=== PATIENT | female | born 1985 | race Caucasian/White ===

== ENCOUNTER 2016-08-21 09:23 | Emergency (ER) | payer SELFPAY ==
[~2016-08-21] VITALS: Ht 175.3 cm; Wt 100.0 kg
[2016-08-21 09:25] VITALS: BP 124/69; PULSE 93; RESP 20; TEMP 97.9; O2SAT 99
[2016-08-21] MEDS ORDERED: SODIUM CHLOR 0.9% 1000 ML INJ 1,000 ML IV SCH (09:44)
[2016-08-21] MEDS ORDERED: KETOROLAC TROMETHAMINE 30 MG/ML (IVP) VIAL IVP ONE (09:45)
[2016-08-21] MEDS ORDERED: SODIUM CHLORIDE 0.9% FLUSH 10 ML FLUSH IV FLUSH PRN (09:45)
[2016-08-21] MEDS ORDERED: SODIUM CHLOR 0.9% 1000 ML INJ 1,000 ML IV ONE (09:45)
[2016-08-21] MEDS ORDERED: INSULIN ASPART 1,000 UNITS/10 ML VIAL SQ ONE (09:45)
[2016-08-21] MEDS ORDERED: ONDANSETRON HCL 4 MG/2 ML VIAL IVP ONE (09:45)
--- NOTE | 2016-08-21 09:54 | PD ---
HPI Chief Complaint: GI Complaint Time Seen by Provider: 09:31 Travel History International Travel<30 days: No Contact w/Intl Traveler<30days: No Traveled to known affect area: No History of Present Illness HPI 30 year-old woman, history of type 1 diabetes, presents to the emergency room with nausea vomiting abdominal pain started around midnight last night. She said about 6 episodes of vomiting, initially food like emesis, now yellow liquid , starting last night. She is not prone to similar problems in the past. She has some abdominal discomfort that she localizes towards the mid abdomen and right upper quadrant, but also occasional sharp pains in the lower suprapubic abdomen. No change in her bowel movements. No vaginal discharge. Last initial period was August 03. She did notice a little bit of spotting started yesterday. She denies any urinary symptoms. Blood sugars were running little bit high recently she's been more stressed out, mostly in the high 100s, but sometimes up to the 300s. Review of systems also positive for some cough, and chills. History Past Medical History Narrative Medical Diabetes Tetanus Vaccination: Unknown Influenza Vaccination: No LMP: 08-03-16 : 0 Social History Alcohol Use: Yes (occ) Tobacco Use: Yes Allergies-Medications (Allergen,Severity, Reaction): Coded Allergies: No Known Allergies (Verified , 08/21/16) Reported Meds & Prescriptions Reported Meds & Active Scripts Active Reported Lantus Inj (Insulin Glargine) 1,000 Unit/10 Ml Vial 30 Units SQ HS Humalog Inj (Insulin Human Lispro) 1,000 Unit/10 Ml Vial 2-12 Units SQ ACHS Max dose at bedtime:( )units; sugars < 70,(0)units; sugars 150-199,(2)units; sugars 200-249,(4)units; sugars 250-299,(7)units; sugars 300-349,(10)units; sugars more than 349,(12)units. Review of Systems Except as stated in HPI: all other systems reviewed are Neg Physical Exam Narrative GENERAL: 30 year-old woman, well-appearing, no acute distress. SKIN: Focused skin assessment warm/dry. NECK: Trachea midline. No JVD. CARDIOVASCULAR: Regular rate and rhythm. No murmur appreciated. RESPIRATORY: No accessory muscle use. Clear to auscultation. Breath sounds equal bilaterally. GASTROINTESTINAL: Abdomen is obese, soft, with mild to moderate right upper quadrant tenderness to palpation. Minimal lower abdominal tenderness. No rebound or guarding. No other complaints. MUSCULOSKELETAL: No obvious deformities. No edema. NEUROLOGICAL: Awake and alert. No obvious cranial nerve deficits. Motor grossly within normal limits. Normal speech. PSYCHIATRIC: Appropriate mood and affect; insight and judgment normal. Data Data Last Documented VS Vital Signs Date Time Temp Pulse Resp B/P Pulse Ox O2 Delivery O2 Flow Rate FiO2 08/21/16 11:35 99 Room Air 08/21/16 11:34 84 18 111/53 08/21/16 09:25 97.9 Orders Ed Urine Pregnancytest Poc (08/21/16 09:31) Urinalysis - C+S If Indicated (08/21/16 09:31) Complete Blood Count With Diff (08/21/16 09:44) Comprehensive Metabolic Panel (08/21/16 09:44) Lipase (08/21/16 09:44) Us Abdomen Gallbladder (08/21/16 ) Iv Access Insert/Monitor (08/21/16 09:44) Ecg Monitoring (08/21/16 09:44) Oximetry (08/21/16 09:44) Ondansetron Inj (Zofran Inj) (08/21/16 09:45) Sodium Chlor 0.9% 1000 Ml Inj (Ns 1000 M (08/21/16 09:44) Sodium Chloride 0.9% Flush (Ns Flush) (08/21/16 09:45) Ketorolac Inj (Toradol Inj) (08/21/16 09:45) Sodium Chlor 0.9% 1000 Ml Inj (Ns 1000 M (08/21/16 09:45) Insulin Aspart Inj (Novolog Inj) (08/21/16 09:45) Labs Laboratory Tests Test 08/21/16 08/21/16 09:50 10:00 Urine Color YELLOW Urine Turbidity CLEAR Urine pH 6.0 Urine Specific [place] 1.035 Urine Protein TRACE mg/dL Urine Glucose (UA) 1000 mg/dL Urine Ketones 10 mg/dL Urine Occult Blood NEG Urine Nitrite NEG Urine Bilirubin NEG Urine Urobilinogen LESS THAN 2.0 MG/DL Urine Leukocyte Esterase NEG Urine RBC LESS THAN 1 /hpf Urine WBC 2 /hpf Urine Squamous Epithelial 2 /hpf Cells Urine Mucus FEW /lpf Microscopic Urinalysis Comment CULT NOT INDICATED White Blood Count 11.0 TH/MM3 Red Blood Count 4.62 MIL/MM3 Hemoglobin 14.2 GM/DL Hematocrit 42.5 % Mean Corpuscular Volume 92.1 FL Mean Corpuscular Hemoglobin 30.7 PG Mean Corpuscular Hemoglobin 33.3 % Concent Red Cell Distribution Width 13.0 % Platelet Count 218 TH/MM3 Mean Platelet Volume 11.0 FL Neutrophils (%) (Auto) 88.6 % Lymphocytes (%) (Auto) 7.2 % Monocytes (%) (Auto) 2.5 % Eosinophils (%) (Auto) 1.6 % Basophils (%) (Auto) 0.1 % Neutrophils # (Auto) 9.8 TH/MM3 Lymphocytes # (Auto) 0.8 TH/MM3 Monocytes # (Auto) 0.3 TH/MM3 Eosinophils # (Auto) 0.2 TH/MM3 Basophils # (Auto) 0.0 TH/MM3 CBC Comment DIFF FINAL Differential Comment Sodium Level 133 MEQ/L Potassium Level 4.3 MEQ/L Chloride Level 101 MEQ/L Carbon Dioxide Level 25.6 MEQ/L Anion Gap 6 MEQ/L Blood Urea Nitrogen 11 MG/DL Creatinine 0.62 MG/DL Estimat Glomerular Filtration 115 ML/MIN Rate Random Glucose 283 MG/DL Calcium Level 8.4 MG/DL Total Bilirubin 0.7 MG/DL Aspartate Amino Transf 18 U/L (AST/SGOT) Alanine Aminotransferase 21 U/L (ALT/SGPT) Alkaline Phosphatase 72 U/L Total Protein 7.0 GM/DL Albumin 3.4 GM/DL Lipase 120 U/L [facility] Medical Decision Making Medical Screen Exam Complete: Yes Emergency Medical Condition: Yes Interpretation(s) LABS: CBC unremarkable CMP unremarkable except for glucose of 283 Lipase normal UA negative Differential Diagnosis Gastritis, cholecystitis, hepatobiliary disease, pancreatitis, , UTI, PID, other Narrative Course Medical decision making INITIAL cause a 22-year-old woman presents to the emergency department with a abdominal pain with vomiting. Pain more in the upper abdomen, right upper quadrant, so she was on vomiting. She has a little bit of spotting as well. She was sexually active about a month or so ago. She's not had any vaginal discharge or other abnormal symptoms to suggest that she is Gustavo or PID. We' ll check labs, ultrasound gallbladder, IV fluids, insulin, Zofran, Toradol, and reassess. Likely discharge with supportive treatment. Diagnosis Primary Impression: Nausea & vomiting Additional Impression: Hyperglycemia Additional Instructions: Take Zofran as needed for nausea or vomiting. Return to the emergency department any worsening abdominal pain, high fevers, dehydration, or any other new or worsening symptoms. Med/Other Pt SpecificInfo: Prescription(s) given Scripts Ondansetron Odt (Zofran Odt)4 Mg Tab4 Mg SL Q8HR PRN (Nausea/Vomiting) #15 TAB May substitute non-ODT form. Prov:Krishna Mendenhall MD 08/21/16 Disposition: 01 DISCHARGE HOME Condition: Stable Krishna Mendenhall MD August 21, 2016 09:54
[2016-08-21 10:17] LABS: AUTOMATED NEUTROPHIL # 9.8 TH/MM3 (1.8-7.7); BASOPHIL % 0.1 % (0.0-2.0); EOSINOPHIL # 0.2 TH/MM3 (0-0.4); EOSINOPHIL % 1.6 % (0.0-4.0); HEMATOCRIT 42.5 % (35.0-46.0); HEMO FLAGS DIFF FINAL; LYMPH % 7.2 % (9.0-44.0); LYMPHOCYTE # 0.8 TH/MM3 (1.0-4.8); MEAN CELL VOLUME 92.1 FL (80.0-100.0); MEAN CORPUSCULAR HEMOGLOBIN 30.7 PG (27.0-34.0); MEAN CORPUSCULAR HGB CONC 33.3 % (32.0-36.0); MONO % 2.5 % (0.0-8.0); NEUT % 88.6 % (16.0-70.0); PLATELET COUNT 218 TH/MM3 (150-450); RED BLOOD COUNT 4.62 MIL/MM3 (4.00-5.30)
[2016-08-21 10:28] LABS: BLOOD, URINE NEG (NEG); COMMENT (UR) CULT NOT INDICATED; CULTURE IF INDICATED CULT NOT INDICATED; GLUCOSE,URINE 1000 mg/dL (NEG); KETONE, URINE 10 mg/dL (NEG); MUCUS URINE FEW /lpf (OCC); NITRITE,URINE NEG (NEG); SQUAMOUS EPITHELIAL CELL URINE 2 /hpf (0-5); URINE COLOR YELLOW (YELLW/STRAW)
--- NOTE | 2016-08-21 10:31 | RADRPT ---
EXAM DATE/TIME: 08/21/2016 09:52 [place] COMPARISON: No previous studies available for comparison. INDICATIONS : Right upper quadrant pain. MEDICAL HISTORY : Diabetes. Nausea. Vomiting. SURGICAL HISTORY : LEEP procedure. Finger surgery. ENCOUNTER: Initial ACUITY: 1 day PAIN SCORE: 5/10 LOCATION: Right upper quadrant MEASUREMENTS: LIVER: 13.3 cm length COMMON DUCT: 2 mm RIGHT KIDNEY: 10.2 x 5.6 x 5.9 cm FINDINGS: LIVER: Normal echotexture without focal lesion or ductal dilatation. COMMON DUCT: No intraluminal mass or stone visualized. GALLBLADDER: Contains no stones, demonstrates no wall thickening or pericholecystic fluid. PANCREAS: The visualized portions are within normal limits. RIGHT KIDNEY: The right inferior renal pole is obscured by overlying bowel gas. Otherwise, No evidence of hydroneph rosis, stone, or mass. CONCLUSION: 1. No sonographic evidence for cholelithiasis or acute cholecystitis, as questioned. 2. Limited evaluation of the right inferior renal pole. Jermaine Ibanez MD on August 21, 2016 at 10:26 Board Certified Radiologist. This report was verified electronically.
[2016-08-21] MEDS ORDERED: HUMALOG SQ (10:44)
[2016-08-21] MEDS ORDERED: LANTUS2P SQ (10:44)
[2016-08-21 10:53] LABS: ANION GAP 6 MEQ/L (5-15); BICARBONATE 25.6 MEQ/L (21.0-32.0); BLOOD UREA NITROGEN 11 MG/DL (7-18); CHLORIDE 101 MEQ/L (98-107); POTASSIUM 4.3 MEQ/L (3.5-5.1); SODIUM (NA) 133 MEQ/L (136-145)
[2016-08-21 11:21] LABS: ALT (GPT) 21 U/L (10-53)
[2016-08-21 11:32] LABS: ALKALINE PHOSPHATASE 72 U/L (45-117); TOTAL BILIRUBIN ADULT 0.7 MG/DL (0.2-1.0)
[2016-08-21 11:33] LABS: AST (GOT) 18 U/L (15-37); GLOMERULAR FILTRATION RATE 115 ML/MIN (>89)
[2016-08-21 11:34] VITALS: BP 111/53; PULSE 84; RESP 18; O2SAT 99
[2016-08-21 11:35] VITALS: O2SAT 99
[2016-08-21] MEDS ORDERED: ZOFR4TAB3 SL (11:58)
== END 2016-08-21 12:16 | disposition home or self-care (01) ==
LOC: NEPD 09:23
DX: R11.2 Nausea with vomiting, unspecified (principal); E10.65 Type 1 diabetes mellitus with hyperglycemia; Z79.4 Long term (current) use of insulin; Z72.0 Tobacco use
CPT/HCPCS: 76705; 80053; 81001; 83690; 84703; 85025; 96361; 96372; 96374; 96375; 99285; J1815; J1885; J2405; J7030

== ENCOUNTER 2016-09-07 12:08 | Emergency (ER) | payer SELFPAY ==
[~2016-09-07] VITALS: Ht 175.3 cm; Wt 95.0 kg
[~2016-09-07 12:08] MED LIST: HUMALOG SQ; LANTUS2P SQ; ZOFR4TAB3 SL
[2016-09-07 12:10] VITALS: BP 133/77; PULSE 95; RESP 20; TEMP 97.4; O2SAT 100
[2016-09-07 12:27] VITALS: BP 142/70; PULSE 86; RESP 17; O2SAT 100
[2016-09-07 12:40] VITALS: BP 142/70; PULSE 88; RESP 18; O2SAT 99
--- NOTE | 2016-09-07 12:40 | PD ---
HPI Chief Complaint: Abnormal Results Time Seen by Provider: 12:33 Travel History International Travel<30 days: No Contact w/Intl Traveler<30days: No Traveled to known affect area: No History of Present Illness HPI 30-year-old female with a history of type 1 diabetes presents to the emergency department for evaluation of low blood sugar and left ear pain. Patient states that for the last week she's noticed her blood sugar has been in the low 50s when she wakes up in the morning. She admits that she has taken a second job and has not been eating as much or as frequently as previously. States that this morning when she woke up she had a throbbing pain in her left ear and also a slight headache. States that she also felt a little shaky and noticed that her blood sugar was 52. States that she ate breakfast and she is feeling a little better however her ears still causing her pain. She took an ibuprofen with minimal improvement of symptoms. She states she has had a slight dry cough and some mild nasal congestion over the past 2 days. She states that she uses a Humalog sliding scale 2-3 times throughout the day and takes Lantus 30 units every night. Denies any fever, chills, nausea, vomiting, diarrhea, abdominal pain, dysuria, chest pain, shortness of breath. Denies , she is currently on her menstrual cycle. No other complaints. PFSH Past Medical History Diabetes: Yes (TYPE I) Patient Takes Glucophage: No Diminished Hearing: No Medical other: Yes (dm) Tetanus Vaccination: > 5 Years Influenza Vaccination: No ?: Not LMP: 09/07/16 : 0 Past Surgical History Other Surgery: Yes (LEEP PROCEDURE) Family History Family Hypercholesterolemia: No Social History Alcohol Use: Yes (occ) Tobacco Use: Yes (1/2 pack per day) Substance Use: Yes (occ marijuana) Allergies-Medications (Allergen,Severity, Reaction): Coded Allergies: No Known Allergies (Verified , 09/07/16) Reported Meds & Prescriptions Reported Meds & Active Scripts Active Reported Lantus Inj (Insulin Glargine) 1,000 Unit/10 Ml Vial 30 Units SQ HS Humalog Inj (Insulin Human Lispro) 1,000 Unit/10 Ml Vial 2-12 Units SQ ACHS Max dose at bedtime:( )units; sugars < 70,(0)units; sugars 150-199,(2)units; sugars 200-249,(4)units; sugars 250-299,(7)units; sugars 300-349,(10)units; sugars more than 349,(12)units. Review of Systems Except as stated in HPI: all other systems reviewed are Neg Physical Exam Narrative GENERAL: Well-nourished and well-developed pleasant female patient in no acute distress who is nontoxic appearing. SKIN: Warm and dry. HEAD: Normocephalic and atraumatic. EYES: No injection, drainage, or hyphema noted. PERRLA. EOMI. ENT: No nasal drainage noted. Oropharynx is clear and the TMs are normal with good landmarks. NECK: Supple and the trachea is midline. No lymphadenopathy is noted throughout the cervical chains. CARDIOVASCULAR: Regular rate and rhythm. RESPIRATORY: Breath sounds are equal bilaterally with no accessory muscle use, wheezing, rhonchi, or crackles. GASTROINTESTINAL: Abdomen is soft, non-tender, and nondistended. MUSCULOSKELETAL: No obvious deformities, swelling, cyanosis, or ecchymosis is present throughout the upper and lower extremities. Patient has full range of motion without any signs of neurovascular compromise. NEUROLOGICAL: Awake, alert, and oriented. Normal speech and gait. Cranial nerves are grossly intact. Data Data Last Documented VS Vital Signs Date Time Temp Pulse Resp B/P Pulse Ox O2 Delivery O2 Flow Rate FiO2 09/07/16 12:40 88 18 142/70 99 Room Air 09/07/16 12:10 97.4 Orders Basic Metabolic Panel (Bmp) (09/07/16 12:32) Complete Blood Count With Diff (09/07/16 12:32) Urinalysis - C+S If Indicated (09/07/16 12:32) Iv Access Insert/Monitor (09/07/16 12:32) Ecg Monitoring (09/07/16 12:32) Oximetry (09/07/16 12:32) Sodium Chloride 0.9% Flush (Ns Flush) (09/07/16 12:45) Ed Urine Pregnancytest Poc (09/07/16 12:32) Acetaminophen (Tylenol) (09/07/16 12:45) Labs Laboratory Tests Test 09/07/16 12:30 White Blood Count 9.3 TH/MM3 Red Blood Count 4.39 MIL/MM3 Hemoglobin 13.2 GM/DL Hematocrit 41.0 % Mean Corpuscular Volume 93.4 FL Mean Corpuscular Hemoglobin 30.2 PG Mean Corpuscular Hemoglobin 32.3 % Concent Red Cell Distribution Width 13.3 % Platelet Count 233 TH/MM3 Mean Platelet Volume 10.5 FL Neutrophils (%) (Auto) 68.6 % Lymphocytes (%) (Auto) 21.2 % Monocytes (%) (Auto) 6.8 % Eosinophils (%) (Auto) 2.6 % Basophils (%) (Auto) 0.8 % Neutrophils # (Auto) 6.4 TH/MM3 Lymphocytes # (Auto) 2.0 TH/MM3 Monocytes # (Auto) 0.6 TH/MM3 Eosinophils # (Auto) 0.2 TH/MM3 Basophils # (Auto) 0.1 TH/MM3 CBC Comment DIFF FINAL Differential Comment Urine Color YELLOW Urine Turbidity CLEAR Urine pH 8.5 Urine Specific [place] 1.029 Urine Protein 300 mg/dL Urine Glucose (UA) NEG mg/dL Urine Ketones NEG mg/dL Urine Occult Blood NEG Urine Nitrite NEG Urine Bilirubin NEG Urine Urobilinogen 2.0 MG/DL Urine Leukocyte Esterase NEG Urine RBC LESS THAN 1 /hpf Urine WBC LESS THAN 1 /hpf Urine Squamous Epithelial 2 /hpf Cells Urine Mucus FEW /lpf Microscopic Urinalysis Comment CULT NOT INDICATED Sodium Level 140 MEQ/L Potassium Level 4.4 MEQ/L Chloride Level 104 MEQ/L Carbon Dioxide Level 30.9 MEQ/L Anion Gap 5 MEQ/L Blood Urea Nitrogen 11 MG/DL Creatinine 0.75 MG/DL Estimat Glomerular Filtration 92 ML/MIN Rate Random Glucose 133 MG/DL Calcium Level 8.8 MG/DL [facility] Medical Decision Making Medical Screen Exam Complete: Yes Emergency Medical Condition: Yes Differential Diagnosis Hypoglycemia versus URI versus decreased oral intake versus electrolyte abnormality Narrative Course 30-year-old female with a history of type 1 diabetes presents to the emergency department for evaluation of low blood sugar and left ear pain with headache. Patient is afebrile, vital signs are stable. Physical examination is essentially unremarkable. The patient has been working more and eating less frequently is likely the cause of her lower blood sugars. I discussed eating more frequent small meals throughout the day and monitoring her blood sugar appropriately. Her symptoms are consistent with maybe the beginning of a viral upper respiratory infection or seasonal allergies. We'll check basic blood work. This is unremarkable the patient will be discharged to home with supportive care. CBC is unremarkable. BMP is unremarkable, shows glucose is 133. Urinalysis shows 300 protein and few mucus. Otherwise unremarkable. Patient has remained stable without complaint while here in the emergency department. She is advised follow-up as an outpatient with her PCP. Discussed supportive care and when to return to the emergency department. Patient verbalizes understanding and agreement with treatment plan. I discussed the case with my attending physician Dr. Dejesus who is aware of the patients history, physical examination findings, and treatment plan. Diagnosis Primary Impression: Hypoglycemia due to type 1 diabetes mellitus Additional Impression: Left ear pain Referrals: Primary Care Physician Patient Instructions: General Instructions, Type 1 Diabetes in Adults (ED) Departure Forms: Tests/Procedures, Work Release Enter return to work date: Sep 08, 2016 Additional Instructions: Make sure to eat multiple small meals and snacks throughout the day. Monitor your blood glucose accordingly. Follow-up with your Primary Care Physician. Return to the ED for any acute worsening of symptoms. Med/Other Pt SpecificInfo: No Change to Meds Disposition: 01 DISCHARGE HOME Condition: Stable Jo Ann Marley Sep 07, 2016 12:40
[2016-09-07] MEDS ORDERED: SODIUM CHLORIDE 0.9% FLUSH 10 ML FLUSH IV FLUSH PRN (12:45)
[2016-09-07] MEDS ORDERED: ACETAMINOPHEN 500 MG CPLT PO ONE (12:45)
[2016-09-07 12:59] LABS: AUTOMATED NEUTROPHIL # 6.4 TH/MM3 (1.8-7.7); BASOPHIL # 0.1 TH/MM3 (0-0.2); BASOPHIL % 0.8 % (0.0-2.0); EOSINOPHIL # 0.2 TH/MM3 (0-0.4); EOSINOPHIL % 2.6 % (0.0-4.0); HEMO FLAGS DIFF FINAL; LYMPH % 21.2 % (9.0-44.0); MEAN CELL VOLUME 93.4 FL (80.0-100.0); MEAN CORPUSCULAR HEMOGLOBIN 30.2 PG (27.0-34.0); MEAN CORPUSCULAR HGB CONC 32.3 % (32.0-36.0); MONO % 6.8 % (0.0-8.0); NEUT % 68.6 % (16.0-70.0); PLATELET COUNT 233 TH/MM3 (150-450); RED BLOOD COUNT 4.39 MIL/MM3 (4.00-5.30); RED CELL DISTRIBUTION WIDTH 13.3 % (11.6-17.2); WHITE BLOOD COUNT 9.3 TH/MM3 (4.0-11.0)
[2016-09-07 13:01] LABS: BLOOD, URINE NEG (NEG); COMMENT (UR) CULT NOT INDICATED; CULTURE IF INDICATED CULT NOT INDICATED; GLUCOSE,URINE NEG (NEG); KETONE, URINE NEG (NEG); MUCUS URINE FEW /lpf (OCC); NITRITE,URINE NEG (NEG); PH, URINE 8.5 (5.0-8.5); SQUAMOUS EPITHELIAL CELL URINE 2 /hpf (0-5); URINE COLOR YELLOW (YELLW/STRAW)
[2016-09-07 13:14] LABS: BICARBONATE 30.9 MEQ/L (21.0-32.0); POTASSIUM 4.4 MEQ/L (3.5-5.1)
[2016-09-07 14:00] VITALS: RESP 17
== END 2016-09-07 14:06 | disposition home or self-care (01) ==
LOC: NEPE 12:08
DX: E11.649 Type 2 diabetes mellitus with hypoglycemia without coma (principal); H92.02 Otalgia, left ear; Z79.4 Long term (current) use of insulin; F17.210 Nicotine dependence, cigarettes, uncomplicated
CPT/HCPCS: 80048; 81001; 84703; 85025; 99284

== ENCOUNTER 2016-09-12 11:35 | Emergency (ER) | payer SELFPAY ==
[~2016-09-12] VITALS: Ht 175.3 cm; Wt 95.4 kg
[~2016-09-12 11:35] MED LIST changes: -ZOFR4TAB3 SL
[2016-09-12 11:38] VITALS: BP 131/71; PULSE 93; RESP 18; TEMP 98.6; O2SAT 99
--- NOTE | 2016-09-12 12:44 | PD ---
HPI Chief Complaint: ENT Complaint Time Seen by Provider: 12:37 Travel History International Travel<30 days: No Contact w/Intl Traveler<30days: No Traveled to known affect area: No History of Present Illness HPI 30-year-old Afro[place] female presents the emergency department with upper respiratory symptoms for the past week. Patient states worsening left ear pain and drainage from both eyes this morning. She has a sinus headache and postnasal drip noted for the past several days. Patient is have productive cough secondary to postnasal drip. She denies significant sore throat or chest pain or congestion. She has no nausea or vomiting. Pain is a 7 out of 10 in the left ear. She has no other significant symptoms. No known drug allergies. PFSH Past Medical History Diabetes: Yes (TYPE 1) Diminished Hearing: No : 0 Past Surgical History Other Surgery: Yes (LEEP PROCEDURE) Family History Family Hypercholesterolemia: No Social History Alcohol Use: Yes (occ) Tobacco Use: Yes (1/2 pack per day) Substance Use: Yes (occ marijuana) Allergies-Medications (Allergen,Severity, Reaction): Coded Allergies: No Known Allergies (Verified , 09/07/16) Reported Meds & Prescriptions Reported Meds & Active Scripts Active Reported Lantus Inj (Insulin Glargine) 1,000 Unit/10 Ml Vial 30 Units SQ HS Humalog Inj (Insulin Human Lispro) 1,000 Unit/10 Ml Vial 2-12 Units SQ ACHS Max dose at bedtime:( )units; sugars < 70,(0)units; sugars 150-199,(2)units; sugars 200-249,(4)units; sugars 250-299,(7)units; sugars 300-349,(10)units; sugars more than 349,(12)units. Review of Systems General / Constitutional: No: Fever Eyes: Positive: Drainage, No: Visual changes HENT: Positive: Headaches, Rhinitis, Rhinorrhea, Congestion, Earache, No: Vertigo, Lightheadedness, Sore Throat, Nosebleed, Gingival Bleeding, Dental Difficulties, Ear Discharge Cardiovascular: No: Chest Pain or Discomfort Respiratory: Positive: Cough, No: Shortness of Breath, Wheezing Gastrointestinal: No: Nausea, Vomiting, Diarrhea, Abdominal Pain Genitourinary: No: Dysuria Musculoskeletal: No: Pain Skin: No Rash Neurologic: No: Weakness Psychiatric: No: Depression Endocrine: No: Polydipsia Hematologic/Lymphatic: No: Easy Bruising Physical Exam Narrative GENERAL: Patient appears in no acute distress. SKIN: Warm and dry. Normal color. Normal turgor. HEAD: Atraumatic. Normocephalic. Patient has moderate frontal and sinus tenderness with percussion and palpation. EYES: Pupils equal and round. No scleral icterus. No injection or drainage. ENT: No nasal bleeding or discharge. Mucous membranes pink and moist. TMs are currently clear bilaterally. Posterior pharynx is injected and swollen with postnasal drip noted. No significant lymphadenopathy. NECK: Trachea midline. Supple and nontender without significant lymphadenopathy. CARDIOVASCULAR: Regular rate and rhythm. RESPIRATORY: No accessory muscle use. Clear to auscultation. Breath sounds equal bilaterally. MUSCULOSKELETAL: Extremities without clubbing, cyanosis, or edema. No obvious deformities. NEUROLOGICAL: Awake and alert. No obvious cranial nerve deficits. Motor grossly within normal limits. Five out of 5 muscle strength in the arms and legs. Normal speech. PSYCHIATRIC: Appropriate mood and affect; insight and judgment normal. Data Data Last Documented VS Vital Signs Date Time Temp Pulse Resp B/P Pulse Ox O2 Delivery O2 Flow Rate FiO2 09/12/16 11:38 98.6 93 18 131/71 99 Room Air MDM Medical Decision Making Medical Screen Exam Complete: Yes Emergency Medical Condition: Yes Medical Record Reviewed: Yes Differential Diagnosis Upper strength infection. Otitis media. Otitis externa. Sinusitis. Narrative Course Patient was treated for sinusitis with amoxicillin 875 twice a day 10 days. Patient is also given Flonase nasal spray 2 sprays each nostril daily. Patient take [id number] ibuprofen and cold medicine as needed. Work note is given. Follow-up as symptoms do not improve or worsen as discussed. Diagnosis Primary Impression: Sinusitis, acute Qualified Code: J01.40 - Acute pansinusitis, recurrence not specified Referrals: Primary Care Physician Patient Instructions: General Instructions, Sinusitis (ED) Departure Forms: Work Release Enter return to work date: Sep 13, 2016 Additional Instructions: Patient was treated for sinusitis with amoxicillin 875 twice a day 10 days. Patient is also given Flonase nasal spray 2 sprays each nostril daily. Patient take [id number] ibuprofen and cold medicine as needed. Work note is given. Follow-up as symptoms do not improve or worsen as discussed. Med/Other Pt SpecificInfo: Prescription(s) given Disposition: 01 DISCHARGE HOME Condition: Stable Teddy Contreras Sep 12, 2016 12:44
[2016-09-12] MEDS ORDERED: AMOX875T PO (12:45)
[2016-09-12] MEDS ORDERED: FLUT1SPR5 EACH NARE (12:45)
== END 2016-09-12 13:12 | disposition home or self-care (01) ==
LOC: NEPK 11:35
DX: J01.90 Acute sinusitis, unspecified (principal); E10.9 Type 1 diabetes mellitus without complications; F17.210 Nicotine dependence, cigarettes, uncomplicated
CPT/HCPCS: 99284

== ENCOUNTER 2016-10-22 12:01 | Emergency (ER) | payer SELFPAY ==
[~2016-10-22] VITALS: Ht 175.3 cm; Wt 100.0 kg
[~2016-10-22 12:01] MED LIST changes: +AMOX875T PO; +FLUT1SPR5 EACH NARE
[2016-10-22 12:02] VITALS: BP 125/67; PULSE 103; RESP 20; TEMP 97.8; O2SAT 99
--- NOTE | 2016-10-22 12:21 | PD ---
HPI Chief Complaint: Injury Time Seen by Provider: 12:21 Travel History International Travel<30 days: No Contact w/Intl Traveler<30days: No Traveled to known affect area: No History of Present Illness HPI 30-year-old Afro-[place] female with history of diabetes treated with insulin, presents the emergency department with reports of numbness to the left toes and distal foot. Patient states she did injure her foot by stubbing her left great toe a couple of months ago. She was concerned that she might have some type of infection. However the patient does not have pain, erythema, swelling, or fever. Her blood sugars running between 120 and 150. She is currently being seen through [facility] for her diabetes. Patient states the numbness seems to be worse in the evenings. She denies any pain of any kind. She has no known drug allergies PFS Past Medical History Diabetes: Yes (TYPE 1) Diminished Hearing: No ?: Not : 0 Past Surgical History Other Surgery: Yes (LEEP PROCEDURE) Family History Family Hypercholesterolemia: No Social History Alcohol Use: Yes (occ) Tobacco Use: Yes (1/2 pack per day) Substance Use: Yes (occ marijuana) Allergies-Medications (Allergen,Severity, Reaction): Coded Allergies: No Known Allergies (Verified , 09/12/16) Reported Meds & Prescriptions Reported Meds & Active Scripts Active Flonase Nasal [place] (Fluticasone Nasal [place]) 50 Mcg/Act [place] 100 Mcg EACH NARE DAILY Amoxicillin 875 Mg Tab 875 Mg PO BID Reported Lantus Inj (Insulin Glargine) 1,000 Unit/10 Ml Vial 30 Units SQ HS Humalog Inj (Insulin Human Lispro) 1,000 Unit/10 Ml Vial 2-12 Units SQ ACHS Max dose at bedtime:( )units; sugars < 70,(0)units; sugars 150-199,(2)units; sugars 200-249,(4)units; sugars 250-299,(7)units; sugars 300-349,(10)units; sugars more than 349,(12)units. Review of Systems Except as stated in HPI: all other systems reviewed are Neg General / Constitutional: No: Fever Eyes: No: Visual changes HENT: No: Headaches Cardiovascular: No: Chest Pain or Discomfort Respiratory: No: Shortness of Breath Gastrointestinal: No: Abdominal Pain Genitourinary: No: Dysuria Musculoskeletal: No: Pain Skin: No Rash Neurologic: No: Weakness Psychiatric: No: Depression Endocrine: No: Polydipsia Hematologic/Lymphatic: No: Easy Bruising Physical Exam Narrative GENERAL: Patient is in no acute distress. SKIN: Warm and dry. Normal color. Normal turgor. Brisk capillary refill and both lower extremities. There is no sign of open wound, cellulitis, or other findings on the feet. HEAD: Atraumatic. Normocephalic. EYES: Pupils equal and round. No scleral icterus. No injection or drainage. ENT: No nasal bleeding or discharge. Mucous membranes pink and moist. NECK: Trachea midline. No JVD. CARDIOVASCULAR: Regular rate and rhythm. RESPIRATORY: No accessory muscle use. Clear to auscultation. Breath sounds equal bilaterally. GASTROINTESTINAL: Abdomen soft, non-tender, nondistended. Hepatic and splenic margins not palpable. MUSCULOSKELETAL: Extremities without clubbing, cyanosis, or edema. No obvious deformities. NEUROLOGICAL: Awake and alert. No obvious cranial nerve deficits. Patient states a feeling of pins and needles to the distal left foot and toes. Motor grossly within normal limits. Five out of 5 muscle strength in the arms and legs. Normal speech. PSYCHIATRIC: Appropriate mood and affect; insight and judgment normal. Data Data Last Documented VS Vital Signs Date Time Temp Pulse Resp B/P Pulse Ox O2 Delivery O2 Flow Rate FiO2 10/22/16 12:02 97.8 103 20 125/67 99 MDM Medical Decision Making Medical Screen Exam Complete: Yes Emergency Medical Condition: No Differential Diagnosis Neuritis. Diabetic neuropathy. Left foot contusion. Narrative Course A medical screening exam was performed: At the time of evaluation the presenting medical condition was determined not to be of an emergent nature. The patient was given the option of receiving additional care, but declined. Patient was given options for additional community resources from which to obtain care. The Patient Has Been advised to seek medical attention for their presenting complaint. The patient has been advised to return to the ER at any time if an emergent condition develops. Condition: Stable Teddy Contreras Oct 22, 2016 12:21
== END 2016-10-22 12:30 | disposition left against medical advice (07) ==
LOC: NEPK 12:01
DX: R20.0 Anesthesia of skin (principal)
CPT/HCPCS: 99281

== ENCOUNTER 2017-06-30 11:17 | Emergency (ER) | payer SELFPAY ==
[~2017-06-30] VITALS: Ht 177.8 cm; Wt 100.0 kg
[2017-06-30 11:56] VITALS: BP 148/83; PULSE 101; RESP 16; TEMP 98.5; O2SAT 100
[2017-06-30 15:03] LABS: AUTOMATED NEUTROPHIL # 6.7 TH/MM3 (1.8-7.7); BASOPHIL # 0.1 TH/MM3 (0-0.2); BASOPHIL % 0.7 % (0.0-2.0); EOSINOPHIL # 0.2 TH/MM3 (0-0.4); EOSINOPHIL % 2.1 % (0.0-4.0); HEMATOCRIT 42.3 % (35.0-46.0); HEMOGLOBIN 14.2 GM/DL (11.6-15.3); LYMPH % 22.6 % (9.0-44.0); LYMPHOCYTE # 2.2 TH/MM3 (1.0-4.8); MEAN CELL VOLUME 92.6 FL (80.0-100.0); MEAN CORPUSCULAR HEMOGLOBIN 31.2 PG (27.0-34.0); MEAN CORPUSCULAR HGB CONC 33.7 % (32.0-36.0); MEAN PLATELET VOLUME 10.7 FL (7.0-11.0); MONO % 5.8 % (0.0-8.0); MONOCYTE # 0.6 TH/MM3 (0-0.9); NEUT % 68.8 % (16.0-70.0); PLATELET COUNT 293 TH/MM3 (150-450); RED BLOOD COUNT 4.57 MIL/MM3 (4.00-5.30); RED CELL DISTRIBUTION WIDTH 13.5 % (11.6-17.2); WHITE BLOOD COUNT 9.7 TH/MM3 (4.0-11.0)
[2017-06-30 15:15] LABS: ALBUMIN 3.5 GM/DL (3.4-5.0); ALT (GPT) 20 U/L (10-53); AST (GOT) 13 U/L (15-37); BICARBONATE 30.3 MEQ/L (21.0-32.0); BLOOD UREA NITROGEN 10 MG/DL (7-18); CALCIUM 8.9 MG/DL (8.5-10.1); CHLORIDE 99 MEQ/L (98-107); CREATININE 0.75 MG/DL (0.50-1.00); GLOMERULAR FILTRATION RATE 91 ML/MIN (>89); GLUCOSE,RANDOM 226 MG/DL (74-106); SODIUM (NA) 137 MEQ/L (136-145)
[2017-06-30 15:18] LABS: ALKALINE PHOSPHATASE 85 U/L (45-117); TOTAL BILIRUBIN ADULT 0.4 MG/DL (0.2-1.0); TOTAL PROTEIN 7.5 GM/DL (6.4-8.2)
[2017-06-30 15:26] LABS: BILIRUBIN, URINE NEG (NEG); BLOOD, URINE SMALL (NEG); GLUCOSE,URINE 1000 mg/dL (NEG); KETONE, URINE NEG (NEG); MUCUS URINE FEW /lpf (OCC); NITRITE,URINE NEG (NEG); SQUAMOUS EPITHELIAL CELL URINE 3 /hpf (0-5); URINE COLOR YELLOW (YELLW/STRAW); URINE LEUKOCYTE ESTERASE NEG (NEG)
--- NOTE | 2017-06-30 15:26 | PD ---
HPI Chief Complaint: GI Complaint Time Seen by Provider: 15:03 Travel History International Travel<30 days: No Contact w/Intl Traveler<30days: No Traveled to known affect area: No History of Present Illness HPI Patient is a 31-year-old female presenting to the emergency department for evaluation of abdominal cramping, diarrhea, headache. Patient states her symptoms started last night, she has had 8 bowel movements overnight. She reports nausea with no vomiting. Patient has not had any bowel movements for the last 4 hours. Patient states she feels dizzy, which is elicited when she turns her head or changes positions. She denies any gait abnormality. She is tolerating food and fluids, she ate nuts and had something to drink while waiting in the emergency department waiting room. Patient reports a history of type 1 diabetes. PFSH Past Medical History Diabetes: Yes (TYPE 1) Diminished Hearing: No ?: Not LMP: on now : 0 Past Surgical History Other Surgery: Yes (LEEP PROCEDURE) Family History Family Hypercholesterolemia: No Social History Alcohol Use: Yes (occ) Tobacco Use: Yes (1/2 pack per day) Substance Use: Yes (occ marijuana) Allergies-Medications (Allergen,Severity, Reaction): Coded Allergies: No Known Allergies (Verified , 09/12/16) Reported Meds & Prescriptions Reported Meds & Active Scripts Active Flonase Nasal [place] (Fluticasone Nasal [place]) 50 Mcg/Act [place] 100 Mcg EACH NARE DAILY Amoxicillin 875 Mg Tab 875 Mg PO BID Reported Lantus Inj (Insulin Glargine) 1,000 Unit/10 Ml Vial 30 Units SQ HS Humalog Inj (Insulin Human Lispro) 1,000 Unit/10 Ml Vial 2-12 Units SQ ACHS Max dose at bedtime:( )units; sugars < 70,(0)units; sugars 150-199,(2)units; sugars 200-249,(4)units; sugars 250-299,(7)units; sugars 300-349,(10)units; sugars more than 349,(12)units. Review of Systems Except as stated in HPI: all other systems reviewed are Neg HENT: No: Headaches Cardiovascular: No: Chest Pain or Discomfort Respiratory: No: Shortness of Breath Gastrointestinal: Positive: Nausea, Diarrhea, No: Vomiting, Abdominal Pain Musculoskeletal: No: Myalgias Physical Exam Narrative GENERAL: Well-developed, well-nourished, alert female. Presenting in no acute distress. SKIN: Warm and dry. HEAD: Atraumatic. Normocephalic. EYES: Pupils equal and round. No scleral icterus. No injection or drainage. ENT: No nasal bleeding or discharge. Mucous membranes pink and moist. NECK: Trachea midline. No JVD. CARDIOVASCULAR: Regular rate and rhythm. RESPIRATORY: No accessory muscle use. Clear to auscultation. Breath sounds equal bilaterally. GASTROINTESTINAL: Abdomen soft, non-tender, nondistended. Hepatic and splenic margins not palpable. MUSCULOSKELETAL: Extremities without clubbing, cyanosis, or edema. No obvious deformities. NEUROLOGICAL: Awake and alert. No obvious cranial nerve deficits. Motor grossly within normal limits. Five out of 5 muscle strength in the arms and legs. Normal speech. PSYCHIATRIC: Appropriate mood and affect; insight and judgment normal. Data Data Last Documented VS Vital Signs Date Time Temp Pulse Resp B/P (MAP) Pulse Ox O2 Delivery O2 Flow Rate FiO2 06/30/17 11:56 98.5 101 16 148/83 (104) 100 Orders Orders Complete Blood Count With Diff (06/30/17 11:58) Comprehensive Metabolic Panel (06/30/17 11:58) Lipase (06/30/17 11:58) Urinalysis - C+S If Indicated (06/30/17 11:58) Ed Urine Pregnancytest Poc (06/30/17 11:58) Labs Laboratory Tests Test 06/30/17 13:43 White Blood Count 9.7 TH/MM3 Red Blood Count 4.57 MIL/MM3 Hemoglobin 14.2 GM/DL Hematocrit 42.3 % Mean Corpuscular Volume 92.6 FL Mean Corpuscular Hemoglobin 31.2 PG Mean Corpuscular Hemoglobin Concent 33.7 % Red Cell Distribution Width 13.5 % Platelet Count 293 TH/MM3 Mean Platelet Volume 10.7 FL Neutrophils (%) (Auto) 68.8 % Lymphocytes (%) (Auto) 22.6 % Monocytes (%) (Auto) 5.8 % Eosinophils (%) (Auto) 2.1 % Basophils (%) (Auto) 0.7 % Neutrophils # (Auto) 6.7 TH/MM3 Lymphocytes # (Auto) 2.2 TH/MM3 Monocytes # (Auto) 0.6 TH/MM3 Eosinophils # (Auto) 0.2 TH/MM3 Basophils # (Auto) 0.1 TH/MM3 CBC Comment DIFF FINAL Differential Comment Urine Color YELLOW Urine Turbidity CLEAR Urine pH 7.0 Urine Specific [place] 1.019 Urine Protein NEG mg/dL Urine Glucose (UA) 1000 mg/dL Urine Ketones NEG mg/dL Urine Occult Blood SMALL Urine Nitrite NEG Urine Bilirubin NEG Urine Urobilinogen LESS THAN 2.0 MG/DL Urine Leukocyte Esterase NEG Urine RBC LESS THAN 1 /hpf Urine WBC 1 /hpf Urine Squamous Epithelial Cells 3 /hpf Urine Mucus FEW /lpf Microscopic Urinalysis Comment CULT NOT INDICATED Blood Urea Nitrogen 10 MG/DL Creatinine 0.75 MG/DL Random Glucose 226 MG/DL Total Protein 7.5 GM/DL Albumin 3.5 GM/DL Calcium Level 8.9 MG/DL Alkaline Phosphatase 85 U/L Aspartate Amino Transf (AST/SGOT) 13 U/L Alanine Aminotransferase (ALT/SGPT) 20 U/L Total Bilirubin 0.4 MG/DL Sodium Level 137 MEQ/L Potassium Level 3.6 MEQ/L Chloride Level 99 MEQ/L Carbon Dioxide Level 30.3 MEQ/L Anion Gap 8 MEQ/L Estimat Glomerular Filtration Rate 91 ML/MIN Lipase 171 U/L MDM Medical Decision Making Medical Screen Exam Complete: Yes Emergency Medical Condition: Yes Interpretation(s) Vital Signs Date Time Temp Pulse Resp B/P (MAP) Pulse Ox O2 Delivery O2 Flow Rate FiO2 06/30/17 11:56 98.5 101 16 148/83 (104) 100 Differential Diagnosis Gastroenteritis versus metabolic abnormality versus vertigo versus viral syndrome versus other Narrative Course Patient is a 31-year-old female presenting to the emergency department for evaluation of diarrhea or dizziness. Patient's vital signs are stable, she is well-appearing. She is tolerating oral food and fluids in the emergency department. Patient was protocoled while waiting in triage. CBC with no acute findings, chemistry with glucose of 226, urinalysis unremarkable. Anion gap and bicarb are normal, there is no suggestion of DKA based on labs as well as patient presentation. Patient was discharged home, she is encouraged to maintain a bland, easy to digest diet, increasing as tolerated. She was encouraged to increase oral fluid intake. She is advised to follow-up with her primary doctor or return to emergency department for any new worsening symptoms. Patient verbalized understanding of instructions. Patient stable for discharge. Diagnosis Primary Impression: GI symptoms Referrals: [facility] 3 days Patient Instructions: Acute Diarrhea (GEN), General Instructions Additional Instructions: Maintain a bland, easy to digest diet, increase as tolerated Increase oral fluid intake Follow-up with your primary doctor Return to emergency department for any new or worsening symptoms Med/Other Pt SpecificInfo: No Change to Meds Disposition: 01 DISCHARGE HOME Condition: Stable Solange Gray Jun 30, 2017 15:26
== END 2017-06-30 16:12 | disposition home or self-care (01) ==
LOC: NEPD 11:17
DX: R19.7 Diarrhea, unspecified (principal); R42 Dizziness and giddiness; R11.0 Nausea; R51 Headache; R10.9 Unspecified abdominal pain; E10.9 Type 1 diabetes mellitus without complications; F12.90 Cannabis use, unspecified, uncomplicated; F17.200 Nicotine dependence, unspecified, uncomplicated; Z79.4 Long term (current) use of insulin
CPT/HCPCS: 80053; 81001; 83690; 84703; 85025; 99283